=== PATIENT | female | born 1965 | race African-American/Black ===

== ENCOUNTER 2025-03-16 05:30 | Emergency (ER) | payer BC ==
--- OUTSIDE RECORDS SUMMARY | 2025-03-16 05:33 | XMS REPORT | Clinical Summary ---
Author Name Unknown Organization [facility] Address [address] [place] [address] Care Team Providers Care Home Support Worker Name Role Phone Physician, Outside Primary Care Provider Unavail able Social History Tobacco Use Types Packs/Day Years Used Date Smoking Tobacco: Never Assessed Comments Unknown Sex and Gender Information Value Date Recorded Sex Assigned at Not on file Legal Sex Female 5:08 PM [employer] Gender Identity Not on file Sexual Orientation Not on file Plan of Treatment Not on file Insurance [facility] PPO POS [facility] PPO POS Care Teams Home Support Worker Relationship Specialty Start Date End Date Phys[place], [place] [address] PCP - General 08/14/15
[2025-03-16 07:00] LABS: ALT/SGPT 16 U/L (13-56); Albumin 4.0 g/dL (3.4-5.0); Albumin/Globulin Ratio 1.3 (1.1-1.8); Alkaline Phosphatase 51 U/L (45-117); Anion Gap 9.0 mEq/L (5.0-15.0); BUN Blood Urea Nitrogen 20 mg/dL (7-18); Globulin 3.2 g/dL (2.3-3.5); Glucose Level 116 mg/dL (74-106); Lipase 35 U/L (13-75); NT PRO-BNP 26 pg/mL (<125); Potassium 3.0 mEq/L (3.5-5.1); Troponin High Sensitivity 5.3 pg/mL (<58.9)
[2025-03-16 07:04] LABS: AST/SGOT < 10 U/L (15-37); Bilirubin Indirect, Calculated 0.2 mg/dL (0.2-0.8)
[2025-03-16 07:21] LABS: Absolute Lymphocytes (CBC) 1.8 K/uL (0.7-4.9); Hematocrit 37.9 % (36.0-45.0); Hemoglobin 12.8 g/dL (12.0-15.0); MCH 29.2 pg (27.0-35.0); MCHC 33.7 g/dL (32.0-36.0); MCV 86.6 fL (80-100); MPV 8.4 fL (7.6-11.3); Nucleated RBC Absolute Count 0.0 (0-0); Nucleated Red Blood Cells % 0.1 % (0-0); RBC Red Blood Cell Count 4.38 M/uL (3.86-4.86); White Blood Count 4.90 thou/uL (4.3-10.9)
--- NOTE | 2025-03-16 07:30 | RAD REPORT ---
Procedure: Chest Single View HISTORY: malaise COMPARISON: none FINDINGS: The lungs appear clear of acute infiltrate. No significant pleural effusion noted. The heart is normal size. IMPRESSION: No acute abnormality is displayed.
--- NOTE | 2025-03-16 07:45 | ER ---
Nurse's Notes [facility] Name: Page Be Age: 59 yrs Sex: Female : 1965 Arrival Date: 03/16/2025 Time: 05:30 Bed 17 Private MD: Diagnosis: Near syncope Presentation: 03/16 05:55 Chief complaint: Patient states: She was nauseated, ran to the restroom to vomit then tb4 turn to go back to bed when she felt herself falling down to the floor. She reached out for the door knob and cut the lateral side of right hand on door. Coronavirus screen: At this time, the client does not indicate any symptoms associated with coronavirus-19. Ebola Screen: No symptoms or risks identified at this time. Initial Sepsis Screen: Does the patient meet any 2 criteria? No. Patient's initial sepsis screen is negative. Does the patient have a suspected source of infection? No. Patient's initial sepsis screen is negative. Risk Assessment: Do you want to hurt yourself or someone else? Patient reports no desire to harm self or others. Onset of symptoms was March 16, 2025. 05:55 Method Of Arrival: Ambulatory tb4 05:55 Acuity: HENRRY 3 tb4 Triage Assessment: 06:07 General: Appears uncomfortable, Behavior is calm, cooperative. Pain: Denies pain. tb4 Neuro: Level of Consciousness is awake, alert, obeys commands, Oriented to person, place, time, situation, [employer] are equal bilaterally Moves all extremities. Full function Gait is steady, Speech is normal, Facial symmetry appears normal, Reports a syncopal episode. Respiratory: No deficits noted. Airway is patent Respiratory effort is even, unlabored, Respiratory pattern is regular, symmetrical. GI: Reports nausea, vomiting. : No deficits noted. No signs and/or symptoms were reported regarding the genitourinary system. Derm: No deficits noted. No signs and/or symptoms reported regarding the dermatologic system. Skin is intact, is healthy with good turgor, Skin is dry, Skin is normal, Skin temperature is warm. Musculoskeletal: Circulation, motion, and sensation intact. Capillary refill < 3 seconds, is brisk, in bilateral fingers. Range of motion: intact in all extremities. Historical: - Allergies: 06:07 No Known Allergies; tb4 - PMHx: 06:07 Hypertensive disorder; Diabetes mellitus; tb4 - PSHx: 06:07 Back; tb4 - Immunization history:: Adult Immunizations up to date. - Infectious Disease History:: Denies. - Social history:: Smoking status: Patient reports the use of cigarette tobacco products, one pack per week, Patient uses alcohol, occasionally. Patient/guardian denies using IV drugs. Screenin:18 [facility] ED Fall Risk Assessment (Adult) History of falling in the last 3 months, tb4 including since admission Yes- single mechanical fall (1 pt) Confusion or Disorientation Yes (5 pts) Intoxicated or Sedated No (0 pts) Impaired Gait No (0 pts) Mobility Assist Device Used No (0 pt) Altered Elimination No (0 pt) Score/Fall Risk Level 0 - 2 = Low Risk Maintained a safe environment. Abuse screen: Denies threats or abuse. Nutritional screening: No deficits noted. Tuberculosis screening: No symptoms or risk factors identified. Assessment: 07:15 Reassessment: Patient appears in no apparent distress at this time. Patient and/or db family updated on plan of care and expected duration. Pain level reassessed. Patient is alert, oriented x 3, equal unlabored respirations, skin warm/dry/pink. Respiratory: 07:45 Reassessment: Patient appears in no apparent distress at this time. Patient and/or db family updated on plan of care and expected duration. Pain level reassessed. Patient is alert, oriented x 3, equal unlabored respirations, skin warm/dry/pink. General: Appears in no apparent distress. comfortable, Behavior is calm, cooperative. Neuro: Level of Consciousness is awake, alert, obeys commands, Oriented to person, place, time, situation. Cardiovascular: No deficits noted. Vital Signs: 05:55 BP 121 / 88; Pulse 89; Resp 18; Pulse Ox 99% on R/A; Weight 92.99 kg; Height 5 ft. 7 tb4 in. ; Pain 0/10; 06:56 BP 126 / 85; Pulse 92; Resp 21; Pulse Ox 98% on R/A; Pain 0/10; tb4 07:45 BP 129 / 81; Pulse 77; Resp 16; Pulse Ox 99% ; db 05:55 Body Mass Index 32.11 (92.99 kg, 170.18 cm) tb4 05:55 Pain Scale: Adult tb4 06:56 Pain Scale: Adult tb4 ED Course: 05:36 Patient arrived in ED. gm2 05:44 Bj Victoria DO is Attending Physician. tt7 06:07 Triage completed. tb4 06:07 Arm band placed on left wrist. tb4 06:14 Inserted saline lock: 20 gauge in right antecubital area, using aseptic technique. oe Blood collected. Flushed with 10 mL NS. 06:18 Initial lab(s) drawn, by me, sent to lab. X-ray(s) taken. tb4 06:18 Patient has correct armband on for positive identification. Bed in low position. Call tb4 light in reach. Adult w/ patient. Client placed on continuous cardiac and pulse oximetry monitoring. NIBP monitoring applied. Warm blanket given. 06:26 XRAY Chest (1 view) In Process Unspecified. EDMS 06:34 Basic Metabolic Panel Sent. oe 06:34 CBC with Diff Sent. oe 06:34 LFT's Sent. oe 06:34 NT PRO-BNP Sent. oe 06:34 Troponin HS Sent. oe 06:56 No provider procedures requiring assistance completed. tb4 07:05 Attending Physician role handed off by Bj Victoria DO sp3 07:05 Martha Villeda MD is Attending Physician. sp3 08:00 Patient did not have IV access during this emergency room visit. intact, No db redness/swelling at site. 08:00 Provided Education on: DISCHARGE. db 08:18 Anna Alejo, RN is Primary Nurse. db Administered Medications: No medications were administered Medication: 06:18 VIS not applicable for this client. tb4 Point of Care Testing: Blood Glucose: 06:23 Blood Glucose: 105 mg/dL; Test Strip: Lot #: [id number]; Expiration: 09/10/2025; tb4 Ranges: Outcome: 07:44 Discharge ordered by . sp3 08:00 Discharged to home ambulatory, with family, db 08:00 Condition: stable 08:00 Discharge instructions given to patient, family, Instructed on discharge instructions, follow up and referral plans. 08:18 Patient left the ED. db Signatures: Dispatcher [employer] EDMS Reddy Laura oe Martha Villeda MD MD sp3 Anna Alejo, RN RN db Aniya Ovalle gm2 Jennifer Mazariegos RN RN tb4 Bj Victoria, DO DO tt7
--- NOTE | 2025-03-16 07:45 | EDPHYS ---
Physician Documentation [facility] Name: Page Be Age: 59 yrs Sex: Female : 1965 Arrival Date: 03/16/2025 Time: 05:30 Bed 17 Private MD: ED Physician Martha Villeda HPI: 03/16 06:56 This 59 yrs old Black Female presents to ER via Ambulatory with complaints of near tt7 syncope. 06:56 Patient reports that she woke up at 330 this morning to go urinate and started to feel tt7 unwell, she was nauseous and then had 1 episode of nonbloody nonbilious vomiting, after that she felt lightheaded and went to reach to grab the bathroom door and fell, she did not hit her head or injure herself other than having a small laceration to the palm of her right hand where she cut it on the door lock, she did not have any chest pain or shortness of breath. Patient reports past medical history of hypertension and diabetes. She was diagnosed with type 2 diabetes about 2 months ago and started on Ozempic. Historical: - Allergies: 06:07 No Known Allergies; tb4 - PMHx: 06:07 Hypertensive disorder; Diabetes mellitus; tb4 - PSHx: 06:07 Back; tb4 - Immunization history:: Adult Immunizations up to date. - Infectious Disease History:: Denies. - Social history:: Smoking status: Patient reports the use of cigarette tobacco products, one pack per week, Patient uses alcohol, occasionally. Patient/guardian denies using IV drugs. ROS: 06:58 Constitutional: negative for fever. Cardiovascular: negative for chest pain. tt7 Respiratory: negative for shortness of breath. 06:58 Abdomen/GI: Positive for nausea and vomiting, Negative for abdominal pain, 06:58 MS/Extremity: negative for injury and deformity. Skin: negative for rash. Neuro: tt7 negative for focal weakness. Exam: 06:58 Constitutional: vital signs reviewed, well appearing. Head/Face: normocephalic, tt7 atraumatic. Eyes: no conjunctival injection, anicteric sclerae. ENT: mucus membranes moist. Neck: trachea midline, no JVD, no meningismus. Chest/axilla: normal chest wall appearance and motion, nontender, no crepitus. Cardiovascular: regular rate and rhythm, no murmurs, no rubs, no lower extremity edema. Respiratory: normal respiratory effort, no accessory muscle use, lungs CTAB. Abdomen/GI: soft, nondistended, nontender, no guarding or rebound, negative Gonzalez's sign, no McBurney point tenderness. Back: normal ROM. Skin: warm, dry, intact, normal turgor, normal color, no rash. MS/ Extremity: normal ROM of extremities, no gross deformities. Neuro: alert and oriented with appropriate mental status, normal speech, follows commands, no focal neurologic deficits. Psych: appropriate mood and affect. Vital Signs: 05:55 BP 121 / 88; Pulse 89; Resp 18; Pulse Ox 99% on R/A; Weight 92.99 kg; Height 5 ft. 7 tb4 in. ; Pain 0/10; 06:56 BP 126 / 85; Pulse 92; Resp 21; Pulse Ox 98% on R/A; Pain 0/10; tb4 07:45 BP 129 / 81; Pulse 77; Resp 16; Pulse Ox 99% ; db 05:55 Body Mass Index 32.11 (92.99 kg, 170.18 cm) tb4 05:55 Pain Scale: Adult tb4 06:56 Pain Scale: Adult tb4 MDM: 05:44 Medical Screening Exam initiated tt7 06:41 Differential Diagnosis: cardiac arrhythmia, drug effect, emotional response, idiopathic tt7 syncope, vasovagal episode, Anemia, pancreatitis, ACS, pneumonia, pneumothorax. Data reviewed: vital signs, nurses notes, lab test result(s), EKG, radiologic studies. ED course: I independently interpreted the patient's EKG performed on 03/16/25. On my interpretation, EKG demonstrates normal sinus rhythm, ventricular rate 84 bpm, normal axis, normal QRS interval, normal ST segments, no STEMI. 06:59 ED course: Vital signs are stable, physical exam is reassuring, overall low suspicion tt7 for dangerous cause of near syncopal symptoms, standard cardiac workup ordered, care transitioned to Dr. Villeda at shift change at 0700 pending results of workup. 07:42 Transition of care: Care assumed from Bj Victoria DO. sp3 07:43 ED course: Patient taken over from night physician by me. Patient reevaluated with sp3 normal vital signs and no symptoms currently. She is asking to be discharged. I went through all of her lab work with her as there are no significant abnormalities. She will follow-up with her PCP.. 03/16 05:52 Order name: Basic Metabolic Panel; Complete Time: 07:32 tt7 03/16 05:52 Order name: CBC with Diff; Complete Time: 07:39 tt7 03/16 05:52 Order name: LFT's; Complete Time: 07:32 tt7 03/16 05:52 Order name: NT PRO-BNP; Complete Time: 07:32 tt7 03/16 05:52 Order name: Troponin HS; Complete Time: 07:32 tt7 03/16 05:52 Order name: Lipase; Complete Time: 07:32 tt7 03/16 06:35 Order name: Glucose, Ancillary Testing; Complete Time: 06:50 EDMS 03/16 05:52 Order name: XRAY Chest (1 view); Complete Time: 07:32 tt7 03/16 05:52 Order name: Cardiac monitoring; Complete Time: 06:55 tt7 03/16 05:52 Order name: EKG - Nurse/Tech; Complete Time: 06:55 tt7 03/16 05:52 Order name: IV Saline Lock; Complete Time: 06:20 tt7 03/16 05:52 Order name: Labs collected and sent; Complete Time: 06:20 tt7 03/16 05:52 Order name: O2 Per Protocol; Complete Time: 06:20 tt7 03/16 05:52 Order name: O2 Sat Monitoring; Complete Time: 06:20 tt7 Administered Medications: No medications were administered Point of Care Testing: Blood Glucose: 06:23 Blood Glucose: 105 mg/dL; Test Strip: Lot #: [id number]; Expiration: 09/10/2025; tb4 Ranges: Critical Glucose Levels:Adult <50 mg/dl or >400 mg/dl <40 mg/dl or >180 mg/dl Disposition: 07:04 Co-signature as Attending Physician, Bj Victoria DO. tt7 Disposition Summary: 03/16/25 07:44 Discharge Ordered Notes: Location: Home sp3 Condition: Stable sp3 Diagnosis - Near syncope sp3 Followup: sp3 - With: Private Physician - When: Upon discharge from the Emergency Department - Reason: Continuance of care Discharge Instructions: - Discharge Summary Sheet sp3 - Near-Syncope sp3 Forms: - Medication Reconciliation Form sp3 - Antibiotic Education sp3 - Prescription Opioid Use sp3 - Patient Portal Instructions sp3 - Leadership Thank You Letter sp3 Signatures: Dispatcher [employer] EDMS Martha Villeda MD MD sp3 Jennifer Mazariegos, RN RN tb4 Bj Victoria, DO DO tt7 Corrections: (The following items were deleted from the chart) 05:52 05:52 BASIC METABOLIC PANEL+C.LAB.BRZ ordered. EDMS EDMS 05:52 05:52 CBC+H.LAB.BRZ ordered. EDMS EDMS 05:52 05:52 HEPATIC FUNCTION+C.LAB.BRZ ordered. EDMS EDMS 05:52 05:52 PROBNP+C.LAB.BRZ ordered. EDMS EDMS 05:52 05:52 Troponin High Sensitivity+C.LAB.BRZ ordered. EDMS EDMS 05:52 05:52 LIPASE+C.LAB.BRZ ordered. EDMS EDMS 05:52 05:52 Chest Single View+RAD.RAD.BRZ ordered. EDMS EDMS 07:04 06:59 ED course: Vital signs are stable, physical exam is reassuring, standard cardiac tt7 workup ordered. tt7
[2025-03-16 08:25] VITALS: BP 126/85; O2SAT 98
== END 2025-03-16 08:18 | disposition home or self-care (01) ==
LOC: ER 05:30
DX: R55 Syncope and collapse (principal); R11.2 Nausea with vomiting, unspecified; E11.9 Type 2 diabetes mellitus without complications; W18.30XA Fall on same level, unspecified, initial encounter; Z72.0 Tobacco use
CPT/HCPCS: 36415; 71045; 80048; 80076; 82947; 83690; 83880; 84484; 85025; 93005; 99284